=== PATIENT | male | born 1985 | race Caucasian/White ===

== ENCOUNTER 2022-01-11 09:41 | Emergency (ER) | payer OTHER ==
[~2022-01-11] VITALS: Ht 180.3 cm; Wt 73.5 kg
--- NOTE | 2022-01-11 09:45 | NUR ---
MD at bedside, medical screening exam in progress.
[2022-01-11] MEDS ORDERED: TRAZ-257 PO (10:08)
[2022-01-11] MEDS ORDERED: QUET200T PO (10:08)
[2022-01-11] MEDS ORDERED: ROBAXIN PO (10:08)
[2022-01-11] MEDS ORDERED: CEphaleXIN 500 MG CAPSULE ONE (10:20)
[2022-01-11] MEDS ORDERED: KETOROLAC TROMETHAMINE 30 MG INJ ONE (10:20)
[2022-01-11] MEDS ORDERED: SULFAMETH/TRIMETH 800/160 MG TABLET ONE (10:21)
[2022-01-11] MEDS ORDERED: SULF1TAB48 PO (10:21)
[2022-01-11] MEDS ORDERED: CEPH500T PO (10:21)
[2022-01-11] MEDS ORDERED: CEphaleXIN 500 MG CAPSULE PO ONE (10:30)
[2022-01-11] MEDS ORDERED: SULFAMETH/TRIMETH 800/160 MG TABLET PO ONE (10:30)
[2022-01-11] MEDS ORDERED: KETOROLAC TROMETHAMINE 30 MG INJ IM ONE (10:30)
--- NOTE | 2022-01-11 10:32 | NUR ---
Patient discharged to home in stable condition. Written and verbal after care instructions given. Patient verbalizes understanding of instructions. Stressed follow up or return to ER for worsening s/s.
[2022-01-11 10:33] VITALS: BP 112/80
== END 2022-01-11 10:33 | disposition home or self-care (01) ==
LOC: ER 09:44
DX: L03.311 Cellulitis of abdominal wall (principal); F17.210 Nicotine dependence, cigarettes, uncomplicated
CPT/HCPCS: 76857; 96372; 99284; 99406; J1885; A4663

== ENCOUNTER 2022-01-13 14:39 | Inpatient (IN) | payer OTHER ==
[~2022-01-13] VITALS: Ht 180.3 cm; Wt 73.5 kg
[~2022-01-13 14:39] MED LIST: CEPH500T PO; QUET200T PO; ROBAXIN PO; SULF1TAB48 PO; TRAZ-257 PO
--- NOTE | 2022-01-13 15:02 | NUR ---
Pt.was seen by pt.was updated with condition and plan of care.
[2022-01-13] MEDS ORDERED: ACETAMINOPHEN ES 500 MG TABLET PO ONE (15:30)
[2022-01-13] MEDS ORDERED: CEFTRIAXONE 1 G in IV DEXTROSE 5% 50 ML IV ONE (15:30)
[2022-01-13] MEDS ORDERED: VANCOMYCIN IV 1,000 MG in IV DEXTROSE 5% 250 ML IV ONE (15:30)
[2022-01-13] MEDS ORDERED: MORPHINE SULFATE 2 MG/1 ML DISP.SYRIN IV ONE (15:30)
[2022-01-13] MEDS ORDERED: ONDANSETRON 4 MG/2 ML VIAL IV ONE ×2 (15:30→19:45)
[2022-01-13] MEDS ORDERED: IV NORMAL SALINE 1000 ML BAG IV ONE (15:30)
[2022-01-13] MEDS ORDERED: MORPHINE SULFATE 2 MG/1 ML DISP.SYRIN ONE (15:38)
[2022-01-13] MEDS ORDERED: ONDANSETRON 4 MG/2 ML VIAL ONE (15:39)
[2022-01-13] MEDS ORDERED: CEFTRIAXONE /D5W 50ML IVPB **ER PYXIS IV ONE (15:39)
[2022-01-13] MEDS ORDERED: ACETAMINOPHEN ES 500 MG TABLET ONE (15:40)
[2022-01-13] MEDS ORDERED: VANCOMYCIN IV 200 ML ONE (15:41)
[2022-01-13 15:43] LABS: HEMATOCRIT 39.3 % (36.7-47.1); MEAN CORPUSCULAR HEMOGLOBIN 30.9 uug (23.8-33.4); PLATELET COUNT (AUTO) 215 K/uL (152-348)
[2022-01-13 15:54] LABS: BILIRUBIN,DIRECT 0.1 mg/dL (0.0-0.2); BILIRUBIN,TOTAL 0.1 mg/dL (0.2-1.0); CREATININE 1.1 mg/dL (0.6-1.3); POTASSIUM 4.2 mmol/L (3.5-5.1); TOTAL PROTEIN, SERUM 7.3 g/dL (6.4-8.2)
--- NOTE | 2022-01-13 17:58 | NUR ---
call fo M/S bed to admit pt,awaiting.
[2022-01-13] MEDS ORDERED: HYDROCODONE/APAP 5-325MG TABLET PO PRN (18:15)
[2022-01-13] MEDS ORDERED: ONDANSETRON 4 MG/2 ML VIAL IV PRN (18:15)
[2022-01-13] MEDS ORDERED: ACETAMINOPHEN 325 MG TABLET PO PRN (18:15)
[2022-01-13] MEDS ORDERED: MAGNESIUM HYDROXIDE 30 ML LIQUID UDC PO PRN (18:15)
--- NOTE | 2022-01-13 19:37 | NUR ---
covid swab performed.
[2022-01-13] MEDS ORDERED: MORPHINE SULFATE 4 MG/1 ML DISP.SYRIN IV ONE (19:45)
[2022-01-13] MEDS ORDERED: MORPHINE SULFATE 4 MG/1 ML DISP.SYRIN ONE (19:51)
[2022-01-13] MEDS ORDERED: ESCI20TA44 PO (20:03)
[2022-01-13] MEDS ORDERED: BUPR-53 PO (20:04)
--- NOTE | 2022-01-13 21:36 | NUR ---
pt to go to room 322 Will RN will be the nurse assigned.
--- NOTE | 2022-01-13 21:47 | NUR ---
called third floor to give report to Will RN, I was told she is with a pt and that she will call back.
[2022-01-13] MEDS ORDERED: PIPERACILLIN SODIUM/TAZOBACTAM 3.375 G in IV DEXTROSE 5% 50 ML IV SCH (22:00)
--- NOTE | 2022-01-13 22:05 | NUR ---
report called to Will RN . pt to go to room 322
--- NOTE | 2022-01-13 22:33 | NUR ---
cigarettes and load checker given to security, pt aware.
--- NOTE | 2022-01-13 22:45 | NUR ---
ADMITTED PATIENT IN MED SURG FLOOR UNDER THE CARE OF DR. CODY, PATIENT HAS ABDOMINAL WALL CELLULITIS, SKIN RED, SURROUNDING SKIN RED, TENDER TO TOUCH, WILL MEDICATE FOR PAIN, ON VANCO, AND ZOSYN ABX FOR THE WOUND, PATIENT ALERT ORIENTED, CONTINENT, COOPERATIVE WITH CARE, CALM AND NICE. CONT TO MONITOR.
--- NOTE | 2022-01-13 22:50 | NUR ---
pt transported to room 322 via [facility], pt ambulated from [facility] to hospital bed. pt transported with all belongings. RN Will at bedside to receive the pt.
[2022-01-13] MEDS ORDERED: PIPERACILLIN/TAZOBACTAM/D5W 50 ML IV ONE ×2 (23:18→23:19)
[2022-01-13] MEDS: PIPERACILLIN SODIUM/TAZOBACTAM 3.375 G in IV DEXTROSE 5% 50 ML IV SCH (23:36)
[2022-01-13 23:39] VITALS: BP 118/69
[2022-01-13] MEDS: TRAZODONE 100 MG TABLET PO SCH (23:44)
[2022-01-13] MEDS: QUETIAPINE FUMARATE 200 MG TABLET PO SCH (23:51)
[2022-01-13] MEDS: MORPHINE SULFATE 2 MG/1 ML DISP.SYRIN IV PRN (23:51)
[2022-01-14] MEDS: VANCOMYCIN IV 1,250 MG in IV DEXTROSE 5% 250 ML IV SCH ×2 (04:04→16:34)
[2022-01-14] MEDS: MORPHINE SULFATE 2 MG/1 ML DISP.SYRIN IV PRN ×4 (04:06→20:52)
[2022-01-14 04:49] VITALS: BP 98/58
[2022-01-14] MEDS: PIPERACILLIN SODIUM/TAZOBACTAM 3.375 G in IV DEXTROSE 5% 50 ML IV SCH (05:56)
[2022-01-14 06:50] LABS: HEMATOCRIT 37.7 % (36.7-47.1); PLATELET COUNT (AUTO) 193 K/uL (152-348)
[2022-01-14] MEDS: PANTOPRAZOLE SODIUM 40 MG TABLET.DR PO SCH (09:16)
[2022-01-14] MEDS: buPROPion XL 150 MG TAB.SR.24H PO SCH (09:16)
[2022-01-14] MEDS: ESCITALOPRAM OXALATE 10 MG TABLET PO SCH (09:16)
--- NOTE | 2022-01-14 11:20 | NUR ---
alert and oriented x4. denies sob. left lower abdomen noted with redness, swelling, warm and tender to touch, appears to have an abscess. unable to say how it started. denies nausea/vomiting, able to void without difficulty. pain relieved with medications. kept comfortable. needs attended.
--- NOTE | 2022-01-14 11:57 | NUR ---
dr mehta with order for sugical consult carried out. jeniffer wolf on the floor aware.
[2022-01-14 12:00] VITALS: BP 101/65
--- NOTE | 2022-01-14 12:31 | NUR ---
WOUND CARE CONSULT: PT PRESENTS WITH RED RAISED AREA TO LEFT ABDOMEN, PRESENT ON ADMISSION. RECOMMEND SURGICAL CONSULT WHICH WAS CALLED BY PMD TO DR KENNA ALFARO. DISCUSSED WITH NURSING STAFF. WILL SEE PRN.
[2022-01-14] MEDS: ENSURE WITH FIBER 237 ML LIQUID (CHOCOLATE) PO SCH (14:16)
[2022-01-14] MEDS ORDERED: LIDOCAINE 2%-EPI 1:100,000 20 ML VIAL TP STA (15:41)
[2022-01-14 16:00] VITALS: BP 115/62
--- NOTE | 2022-01-14 16:10 | NUR ---
Chelsey Bilingual Interpreter here to do Incision and Drainage for left lower quadrant abscess. Lidocaine 2%-epi administered by Bilingual Interpreter. Time out at bedside done for procedure.
[2022-01-14] MEDS ORDERED: NEPRO (VANILLA) 237 ML CAN PO SCH (16:30)
[2022-01-14] MEDS ORDERED: MORPHINE SULFATE 2 MG/1 ML DISP.SYRIN IV ONE (16:45)
[2022-01-14] MEDS: QUETIAPINE FUMARATE 200 MG TABLET PO SCH (17:20)
--- NOTE | 2022-01-14 18:31 | NUR ---
pt s/p incision and drainage to left lower quadrant abscess. area with abdominal pad, no overt bleeding noted. denies pain at this time. pt states he feels much better after procedure. iv atb given as ordered no adverse reaction noted. comfortable, needs attended. no complaints at this time.
[2022-01-14 20:00] VITALS: BP 114/66
[2022-01-14] MEDS: TRAZODONE 100 MG TABLET PO SCH (20:51)
[2022-01-15 04:00] VITALS: BP 129/56
[2022-01-15] MEDS: VANCOMYCIN IV 1,250 MG in IV DEXTROSE 5% 250 ML IV SCH ×2 (04:25→16:19)
--- NOTE | 2022-01-15 04:56 | NUR ---
Received in bed alert oriented, no sob no chest pain, left abdomen with dressing, clean and intact, cont on pain management. Patient sleep well, cont abx for abdominal wall cellulitis, cont to monitor.
[2022-01-15] MEDS: PANTOPRAZOLE SODIUM 40 MG TABLET.DR PO SCH (05:49)
[2022-01-15] MEDS: MORPHINE SULFATE 2 MG/1 ML DISP.SYRIN IV PRN ×2 (05:50→09:57)
[2022-01-15] MEDS: ENSURE WITH FIBER 237 ML LIQUID (CHOCOLATE) PO SCH (09:42)
[2022-01-15] MEDS: buPROPion XL 150 MG TAB.SR.24H PO SCH (09:42)
[2022-01-15] MEDS: ESCITALOPRAM OXALATE 10 MG TABLET PO SCH (09:42)
[2022-01-15] MEDS ORDERED: MORPHINE SULFATE 4 MG/1 ML DISP.SYRIN IV PRN (11:00)
[2022-01-15 11:06] VITALS: BP 116/74
[2022-01-15] MEDS ORDERED: DOXY-326 PO (13:37)
[2022-01-15] MEDS ORDERED: HYDR-3980 PO (13:37)
[2022-01-15] MEDS ORDERED: SULF1TAB48 PO (13:37)
[2022-01-15] MEDS ORDERED: CEFTRIAXONE 1 G in IV DEXTROSE 5% 50 ML IV SCH (14:00)
[2022-01-15] MEDS ORDERED: HYDR-3972 PO (14:12)
[2022-01-15 15:07] VITALS: BP 118/72
[2022-01-15] MEDS ORDERED: MORPHINE SULFATE 4 MG/1 ML DISP.SYRIN IV ONE (16:15)
[2022-01-15] MEDS: QUETIAPINE FUMARATE 200 MG TABLET PO SCH (17:30)
== END 2022-01-15 18:35 | disposition home or self-care (01) | DRG 603 ==
LOC: ER 14:39 → MEDSURG3 22:15
PROVIDERS: ADMIT Internal Medicine; ATTEND Internal Medicine
PROC: 0H97XZZ Drainage of Abdomen Skin, External Approach (ICD-10-PCS; principal; 2022-01-14)
DX: L02.211 Cutaneous abscess of abdominal wall (principal); L03.311 Cellulitis of abdominal wall; F17.210 Nicotine dependence, cigarettes, uncomplicated; Z86.59 Personal history of other mental and behavioral disorders; D72.829 Elevated white blood cell count, unspecified; G47.00 Insomnia, unspecified
CPT/HCPCS: 36415; 72192; 83605; 83735; 85025; 87040; 87070; 87077; 93005; A4663; A9150; G0378; J0696; J2270; J2405; J2543; J3370; J7040; J7050